=== PATIENT | male | born 1970 | race Two or more races ===

== ENCOUNTER 2021-12-10 10:06 | Emergency (ER) | payer OTHER ==
[~2021-12-10] VITALS: Ht 167.6 cm; Wt 84.0 kg
[2021-12-10] MEDS ORDERED: KETOROLAC 60 MG/2 ML VIAL. IM ONE (10:45)
[2021-12-10] MEDS ORDERED: ORPHENADRINE CITRATE 60 MG/2 ML VIAL. IM ONE (10:45)
[2021-12-10] MEDS ORDERED: LIDOCAINE (700MG/PATCH) PATCH. TD ONE (10:45)
[2021-12-10] MEDS ORDERED: NAPR-514 PO (10:55)
[2021-12-10] MEDS ORDERED: ORPH100T PO (10:55)
--- NOTE | 2021-12-10 10:56 | PHYS DOC ---
Past Medical History Past Surgical History: No Surgical History General Adult EDM: Chief Complaint: BACK PAIN OR INJURY HPI: HPI: Patient is a 51 year old male who presents with low back pain that began a few weeks ago. Patient states that he started a new job working for [employer] in September. Since that time, he feels he has had increased pain in his low back and his wrists. Over 1 week ago, he states that he had difficulty lifting 2 propane tanks onto a belts that was about waist height. Since that time, he states he has constant moderate back pain with intermittent episodes of severe pain. He states when he has these increased pain episodes, that he bends down to 1 knee until they pass. Patient reports associated lateral foot paresthesias on the left side. He has not taken any medications at home despite his encouraging him to take ibuprofen. Patient has additional complaint of a "mole" on his low back which she is concerned might be cancerous. Patient denies bowel or bladder incontinence, traumatic injury, focal weakness, IV drug use. Review of Systems: Review of Systems: Constitutional: Denies fever, chills or generalized weakness Eyes: Denies change in visual acuity, visual field deficits or discharge HENT: Denies ear pain, nasal congestion or sore throat Respiratory: Denies cough or shortness of breath Cardiovascular: Denies chest pain, palpitations or edema GI: Denies abdominal pain, nausea, vomiting, bloody stools or diarrhea : Denies dysuria or hematuria Musculoskeletal: See HPI Integument: See HPI Neurologic: See HPI Heart Score: C/O Chest Pain: No Allergies: Allergies: Allergies Coded Allergies Type Severity Reaction Last Updated Verified No Known Drug Allergies 12/10/21 No Physical Exam: PE: Constitutional: Well developed, well nourished, no acute distress, non-toxic appearance. HENT: Normocephalic, atraumatic, bilateral external ears normal, nose normal. Eyes: EOMI, conjunctiva normal, no discharge. Neck: Normal range of motion, no stridor. Skin: 2-3 mm round, raised and dry lesion noted to the left low back, borders are slightly irregular, no surrounding erythema/induration/fluctuance. Skin otherwise warm, dry, no erythema, no rash. Back: No step-off, no midline tenderness, low thoracic and high lumbar regions with paraspinal spasm and tenderness L>R. Extremities: No tenderness, no cyanosis, no clubbing, ROM intact, no edema, great toe dorsiflexion 5/5 symmetrical, distal pulses symmetrical. Neurologic: Alert and oriented x4, steady and symmetrical gait, no focal deficits noted. Current Patient Data: Vital Signs: Vital Signs Date Time Temp Pulse Resp B/P (MAP) Pulse Ox O2 Delivery O2 Flow Rate FiO2 12/10/21 11:07 68 14 140/72 (94) 96 12/10/21 10:12 98.6 70 16 136/8 (50) 95 98.6 Course & Med Decision Making: Course & Med Decision Making Pertinent Labs and Imaging studies reviewed. (See chart for details) Patient is a 51-year-old male who presents with subacute back pain that began when he started his new job. 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 Risk versus benefit of CT imaging discussed with the patient. In shared decision-making, patient I decided to defer imaging at this time and refer to pain management for possible MRI evaluation. Patient will be treated in the department today with Toradol, Norflex and topical lidocaine patch. Other nonpharmacologic supportive treatment measures were discussed with the patient. Referrals will be provided today for pain management as well as dermatology, for further evaluation of the skin lesion which he raised concerns about. Return precautions provided. All of the patient's questions were answered. Patient understands and is agreeable to discharge plan Dragon Disclaimer: Dragon Disclaimer: This electronic medical record was generated, in whole or in part, using a voice recognition dictation system. Departure Departure Impression: Primary Impression: Low back strain Qualified Codes: S39.012A - Strain of muscle, fascia and tendon of lower b ack, initial encounter Additional Impression: Skin lesion of back Disposition: HOME / SELF CARE / HOMELESS Condition: IMPROVED Referrals: NAYA SAM MD Patient Instructions: Back Pain, Adult, [id number], Muscle Strain, [id number] Additional Instructions: [facility] Hours: Nerissa Murray PA-C Monday - Monday [id number] 8:00 am - 5:00 [place] [address] EMERGENCY DEPARTMENT GENERAL DISCHARGE INSTRUCTIONS Thank you for coming to [facility] Emergency Department (ED) today and trusting us with you care. We trust that you had a positive experience in our Emergency Department. If you wish to speak to the department management, you may call the director at . YOUR FOLLOW UP INSTRUCTIONS ARE FOLLOWS: 1. Follow up with your primary care doctor. If you do not have a primary doctor, please ask for a resource list of physicians or clinics that may be able to assist you with follow up care. 2. The emergency provider has interpreted your imaging studies, if any were ordered. The radiology revenue cycle specialist also reviewed them. If there is a change in the findings, you will be notified in 48 hours when at all possible. 3. If a lab test or culture has been done, your results will be reviewed and you will be notified if you need a change in treatment. 4. Follow instructions verbalized to you and refer to the printouts if needed. ADDITIONAL INSTRUCTIONS AND INFORMATION: 1. Your care today has been supervised by a physician who is specially trained in emergency care. Many problems require more than one evaluation for a compl ete diagnosis and treatment. We recommend that you schedule your follow up appointment as recommended to ensure complete treatment of you illness or injury. If you are unable to obtain follow up care and continue to have a problem, or if your condition worsens, we recommend that you return to the ED. 2. We are not able to safely determine your condition over the phone nor are we able to give sound medical advice over the phone. For these safety reasons, if you call for medical advice we will ask you to come to the ED for further evaluation. 3. If you have any questions regarding these discharge instructions please call the ED at . SAFETY INFORMATION: In the interest of safety, wellness, and injury prevention; we encourage you to wear your seat belt, if you smoke; quite smoking, and we encourage family to use a protective helmet for bicycling and other sporting events that present an increased risk for head injury. IF YOUR SYMPTOMS WORSEN OR NEW SYMPTOMS DEVELOP, OR YOU HAVE CONCERNS ABOUT YOUR CONDITION; OR IF YOUR CONDITION WORSENS WHILE YOU ARE WAITING FOR YOUR FOLLOW UP APPOINTMENT; EITHER CONTACT YOUR PRIMARY CARE DOCTOR, THE PHYSICIAN WHOSE NAME AND NUMBER YOU WERE GIVEN, OR RETURN TO THE ED IMMEDIATELY. Scripts Orphenadrine Citrate (ORPHENADRINE CITRATE) 100 Mg Tablet.er 1 TAB PO PRN Q12HR PRN for MUSCLE PAIN, #14 TAB 0 Refills Prov: MAYI ARMENTA 12/10/21 Naproxen (NAPROXEN) 500 Mg Tablet 1 TAB PO BID for pain for 14 Days, #28 TAB 0 Refills Prov: MAYI ARMENTA 12/10/21 MAYI ARMENTA Dec 10, 2021 10:56
[2021-12-10 11:07] VITALS: BP 140/72
== END 2021-12-10 11:07 | disposition home or self-care (01) ==
LOC: ER 10:06
DX: S39.012A Strain of muscle, fascia and tendon of lower back, initial encounter (principal); M25.532 Pain in left wrist; L98.8 Other specified disorders of the skin and subcutaneous tissue; M25.531 Pain in right wrist; X50.9XXA Other and unspecified overexertion or strenuous movements or postures, initial encounter; Y93.89 Activity, other specified; Y92.89 Other specified places as the place of occurrence of the external cause; Y99.8 Other external cause status
CPT/HCPCS: 96372; 99284; J1885; J2360